=== PATIENT | male | born 1975 | race Hispanic/Latino ===

== ENCOUNTER 2017-10-18 18:47 | Emergency (ER) | payer BC, OTHER ==
[2017-10-18] MEDS ORDERED: IPRATROPIUM/ALBUTEROL SULFATE 3 ML SOLUTION IH ONE (19:16)
== END 2017-10-18 19:44 | disposition home or self-care (01) ==
LOC: EDH 18:47
DX: J18.9 Pneumonia, unspecified organism (principal); E11.9 Type 2 diabetes mellitus without complications; I10 Essential (primary) hypertension
CPT/HCPCS: 71046; 94640

== ENCOUNTER 2017-11-26 07:06 | Emergency (ER) | payer SELFPAY ==
[2017-11-26] MEDS ORDERED: CEPHALEXIN 500 MG CAPSULE ONE (07:38)
[2017-11-26] MEDS ORDERED: ACETAMINOPHEN 325 MG TAB ONE (07:39)
[2017-11-26] MEDS ORDERED: SULFAMETHOX-TMP DS 800/160 TAB ONE (07:39)
== END 2017-11-26 08:05 | disposition home or self-care (01) ==
LOC: EDH 07:06
DX: L03.211 Cellulitis of face (principal); E11.9 Type 2 diabetes mellitus without complications; I10 Essential (primary) hypertension
CPT/HCPCS: 10021

== ENCOUNTER 2017-11-27 02:38 | Emergency (ER) | payer SELFPAY ==
[2017-11-27] MEDS ORDERED: CEFTRIAXONE SODIUM 1 GM ONE (03:06)
[2017-11-27] MEDS ORDERED: LIDOCAINE HCL-MPF 1% 2ML VIAL ONE (03:06)
[2017-11-27] MEDS ORDERED: HYDROCODONE/ACETAMINOPHEN 7.5/325 MG 15 ML UDCUP ONE (03:08)
== END 2017-11-27 03:36 | disposition home or self-care (01) ==
LOC: EDH 02:38
DX: H00.023 Hordeolum internum right eye, unspecified eyelid (principal)
CPT/HCPCS: 96372; 99283; J0696; J3490

== ENCOUNTER 2018-06-02 07:39 | Emergency (ER) | payer OTHER | END 2018-06-02 08:36 | disposition home or self-care (01) | LOC: EDH 07:39 | DX: L73.9 Follicular disorder, unspecified (principal); K13.0 Diseases of lips; E11.9 Type 2 diabetes mellitus without complications; I10 Essential (primary) hypertension ==

== ENCOUNTER 2019-11-09 15:38 | Inpatient (IN) | payer SELFPAY ==
[~2019-11-09] VITALS: Ht 188 cm; Wt 128.4 kg
[2019-11-09] MEDS ORDERED: TETANUS/DIPHTHERIA TOXOID [ADULT] 0.5 ML VIAL IM ONE (16:48)
[2019-11-09 16:53] LABS: BASOPHILS % (AUTO) 0.4 % (0.0-5.0); EOSINOPHILS % (AUTO) 1.3 % (0.0-8.0); HEMATOCRIT 42.9 % (42-54); LYMPHOCYTES % (AUTO) 16.6 % (21.0-51.0); MEAN CORPUSCULAR HEMOGLOBIN 30.2 pg (27.0-33.0); MEAN CORPUSCULAR HGB CONC 35.4 g/dL (32.0-36.0); MEAN CORPUSCULAR VOLUME 85.3 fL (79-99); NEUTROPHILS % (AUTO) 72.8 % (40.0-77.0); PLATELET COUNT (AUTO) 265 K/uL (130-400); RED BLOOD CELL COUNT(AUTO) 5.03 MIL/uL (4.50-6.20); RED CELL DISTRIBUTION WIDTH 11.9 % (11.0-15.5); WHITE BLOOD COUNT (AUTO) 9.9 K/uL (4.8-10.8)
[2019-11-09 17:05] LABS: CREATININE 0.9 mg/dL (0.5-1.5); POTASSIUM 4.2 mmol/L (3.5-5.1)
[2019-11-09 17:10] LABS: ALBUMIN 2.9 g/dL (3.5-5.0); BILIRUBIN,TOTAL 0.7 mg/dL (0.2-1.0); TOTAL PROTEIN, SERUM 7.2 g/dL (6.0-8.3)
[2019-11-09 19:00] LABS: APPEARANCE,URINE Clear (CLEAR); BILIRUBIN,URINE Negative (NEGATIVE); COLOR,URINE Yellow (YELLOW); GLUCOSE, URINE (UA) >=1000 mg/dL (NEGATIVE); KETONES,URINE 15 mg/dL (NEGATIVE); LEUKOCYTE ESTERASE ,URINE Negative (NEGATIVE); NITRATE,URINE Negative (NEGATIVE); OCCULT BLOOD,URINE Negative (NEGATIVE); PH,URINE 5.5 (5.0-8.0); PROTEIN,URINE Negative (NEGATIVE)
[2019-11-09 19:14] LABS: BACTERIA,URINE Rare /HPF (None Seen); RBC,URINE 0-1 /HPF (0-1); SQUAMOUS EPITHELIAL CELL,UR Rare /HPF (0-2); WBC,URINE 0-1 /HPF (0-1)
[2019-11-09] MEDS ORDERED: ACETAMINOPHEN 325 MG TAB PO PRN ×2 (20:30)
[2019-11-09] MEDS ORDERED: LACTULOSE 20 GM/30 ML UDCUP PO PRN (20:30)
[2019-11-09] MEDS ORDERED: ONDANSETRON HCL 4 MG/2 ML VIAL IV PRN (20:30)
[2019-11-09] MEDS: ZOSYN 3.375GM+NS 50ML 50 ML IV SCH (21:00)
[2019-11-09] MEDS: SODIUM CHLORIDE 0.9% 1000ML 1,000 ML IV SCH (21:00)
[2019-11-09] MEDS: FAMOTIDINE 20MG TAB 20 MG TAB PO SCH (21:00)
[2019-11-09] MEDS: INSULIN HUMULIN R 100 UNIT/ML 3ML SQ SCH (21:00)
[2019-11-09] MEDS ORDERED: ZOSYN 3.375GM+NS 50ML 50 ML IV ONE (21:12)
[2019-11-09] MEDS ORDERED: FAMOTIDINE 20MG TAB 20 MG TAB ONE (21:12)
[2019-11-09] MEDS ORDERED: INSULIN HUMULIN R 100 UNIT/ML 3ML ONE (21:13)
[2019-11-09 22:30] VITALS: BP 172/83
--- NOTE | 2019-11-09 22:47 | NUR ---
the normal saline, zosyn, pepcid, and HR insulin not administered at this time, according to ER nurse patient received medication there at 2119.
[2019-11-09] MEDS: HYDRALAZINE HCL 20 MG/ML VIAL IV PRN (22:54)
[2019-11-10] VITALS (7 sets, daily range): BP systolic 133–151; BP diastolic 76–87
[2019-11-10] MEDS: ZOSYN 3.375GM+NS 50ML 50 ML IV SCH ×3 (04:08→20:28)
[2019-11-10 06:01] LABS: BASOPHILS % (AUTO) 0.5 % (0.0-5.0); EOSINOPHILS % (AUTO) 1.5 % (0.0-8.0); HEMATOCRIT 40.8 % (42-54); LYMPHOCYTES % (AUTO) 24.2 % (21.0-51.0); MEAN CORPUSCULAR HGB CONC 34.8 g/dL (32.0-36.0); MEAN CORPUSCULAR VOLUME 86.1 fL (79-99); NEUTROPHILS % (AUTO) 63.5 % (40.0-77.0); PLATELET COUNT (AUTO) 271 K/uL (130-400); RED BLOOD CELL COUNT(AUTO) 4.74 MIL/uL (4.50-6.20); RED CELL DISTRIBUTION WIDTH 11.8 % (11.0-15.5); WHITE BLOOD COUNT (AUTO) 8.2 K/uL (4.8-10.8)
[2019-11-10 06:17] LABS: CREATININE 0.8 mg/dL (0.5-1.5); POTASSIUM 4.5 mmol/L (3.5-5.1)
[2019-11-10] MEDS: SODIUM CHLORIDE 0.9% 1000ML 1,000 ML IV SCH ×2 (06:44→17:04)
[2019-11-10] MEDS: INSULIN HUMULIN R 100 UNIT/ML 3ML SQ SCH ×4 (06:45→20:38)
[2019-11-10] MEDS: FAMOTIDINE 20MG TAB 20 MG TAB PO SCH ×2 (08:16→20:29)
[2019-11-10] MEDS: HYDRALAZINE HCL 20 MG/ML VIAL IV PRN (08:17)
[2019-11-10] MEDS: ENOXAPARIN SODIUM 40 MG/0.4 ML SYRINGE SQ SCH (08:24)
[2019-11-10] MEDS: METOPROLOL TARTRATE 25 MG TAB PO SCH ×2 (10:40→20:28)
[2019-11-10] MEDS ORDERED: METOPROLOL TARTRATE 25 MG TAB ONE (11:01)
--- NOTE | 2019-11-10 20:30 | NUR ---
MEDS SHIFT ASSESSMENT DONE, PLEASE REFER TO CHART. DUE MEDS ADMINISTERED, TOLERATED WELL. CALL LIGHT WITHIN REACH. WILL MONITOR PT. CALL LIGHT WITHIN REACH.
--- NOTE | 2019-11-10 21:10 | NUR ---
[facility] PCP IN AND ASSISTED PT TO THE SHOWER. PT TOLERATED ACTIVITY WELL.
--- NOTE | 2019-11-11 01:55 | NUR ---
ROUNDS PT FAIRLY ASLEEP WITH RESPIRATIONS EVEN AND UNLABORED. NO NOTED DISTRESS. KEPT UNDISTURBED FOR NOW. WILL MONITOR PT.
[2019-11-11] MEDS: SODIUM CHLORIDE 0.9% 1000ML 1,000 ML IV SCH ×3 (02:44→23:00)
[2019-11-11 03:06] VITALS: BP 156/80
[2019-11-11] MEDS: ZOSYN 3.375GM+NS 50ML 50 ML IV SCH ×3 (04:27→23:24)
--- NOTE | 2019-11-11 06:00 | NUR ---
MEDS PT ALREADY AWAKE, NO CONCERNS VERBALIZED. DUE INSULIN DOSE ADMINISTERED, TOLERATED WELL. KEPT COMFORTABLE IN BED. FOR MORE CARE.
[2019-11-11] MEDS: INSULIN HUMULIN R 100 UNIT/ML 3ML SQ SCH ×4 (06:05→23:32)
[2019-11-11 06:14] LABS: BASOPHILS % (AUTO) 0.6 % (0.0-5.0); HEMATOCRIT 40.6 % (42-54); LYMPHOCYTES % (AUTO) 31.8 % (21.0-51.0); MEAN CORPUSCULAR HEMOGLOBIN 30.5 pg (27.0-33.0); MEAN CORPUSCULAR HGB CONC 35.7 g/dL (32.0-36.0); MEAN CORPUSCULAR VOLUME 85.3 fL (79-99); MONOCYTES % (AUTO) 8.2 % (3.0-13.0); NEUTROPHILS % (AUTO) 55.4 % (40.0-77.0); PLATELET COUNT (AUTO) 284 K/uL (130-400); RED BLOOD CELL COUNT(AUTO) 4.76 MIL/uL (4.50-6.20); RED CELL DISTRIBUTION WIDTH 11.8 % (11.0-15.5); WHITE BLOOD COUNT (AUTO) 6.5 K/uL (4.8-10.8)
[2019-11-11 06:28] LABS: ALBUMIN 2.6 g/dL (3.5-5.0); BILIRUBIN,TOTAL 0.6 mg/dL (0.2-1.0); CREATININE 0.8 mg/dL (0.5-1.5); POTASSIUM 4.4 mmol/L (3.5-5.1); TOTAL PROTEIN, SERUM 6.6 g/dL (6.0-8.3)
[2019-11-11] MEDS ORDERED: METF-446 PO (06:49)
[2019-11-11] MEDS ORDERED: LISI10TA7 PO (06:49)
[2019-11-11 08:00] VITALS: BP 143/83
--- NOTE | 2019-11-11 08:00 | NUR ---
AM SHIFT ASSESSMENT. DRESSINGS TO FEET IN PLACE, CLEAN AND DRY. DENIES PAIN.
[2019-11-11] MEDS ORDERED: LIDOCAINE HCL-MPF 2% 5ML VIAL IM SCH (09:00)
[2019-11-11] MEDS: FAMOTIDINE 20MG TAB 20 MG TAB PO SCH ×2 (10:00→23:24)
[2019-11-11] MEDS: METOPROLOL TARTRATE 25 MG TAB PO SCH ×2 (10:00→23:25)
[2019-11-11] MEDS: ENOXAPARIN SODIUM 40 MG/0.4 ML SYRINGE SQ SCH (10:01)
--- NOTE | 2019-11-11 11:28 | NUR ---
DR. FERMIN IN TO SEE PT. BEDSIDE DEBRIDEMENT DONE TO BLISTERED AREA RT. FOOT. CULTURE COLLECTED AND SENT TO LAB. DRY BLISTER ON LT FOOT CLEANED AND LEFT ALONE TO OPEN IR.
[2019-11-11 12:00] VITALS: BP 151/78
[2019-11-11 16:00] VITALS: BP 160/84
--- NOTE | 2019-11-11 18:00 | NUR ---
HAS RESTED WELL TODAY. STATES HAS NO PAIN TO RT. FOOT. DRESSING IN PLACE. WILL NEED TO BE REINFORCED.
[2019-11-11 19:50] VITALS: BP 127/82
[2019-11-12] VITALS: BP 166/94
[2019-11-12] MEDS: SODIUM CHLORIDE 0.9% 1000ML 1,000 ML IV SCH (02:12)
[2019-11-12] MEDS: ZOSYN 3.375GM+NS 50ML 50 ML IV SCH ×2 (03:19→12:20)
[2019-11-12 04:12] LABS: EOSINOPHILS % (AUTO) 2.6 % (0.0-8.0); HEMATOCRIT 42.5 % (42-54); LYMPHOCYTES % (AUTO) 31.1 % (21.0-51.0); MEAN CORPUSCULAR HEMOGLOBIN 30.1 pg (27.0-33.0); MEAN CORPUSCULAR HGB CONC 35.3 g/dL (32.0-36.0); MEAN CORPUSCULAR VOLUME 85.2 fL (79-99); MONOCYTES % (AUTO) 7.3 % (3.0-13.0); NEUTROPHILS % (AUTO) 54.3 % (40.0-77.0); PLATELET COUNT (AUTO) 299 K/uL (130-400); RED BLOOD CELL COUNT(AUTO) 4.99 MIL/uL (4.50-6.20); RED CELL DISTRIBUTION WIDTH 11.6 % (11.0-15.5); WHITE BLOOD COUNT (AUTO) 6.8 K/uL (4.8-10.8)
[2019-11-12 04:49] LABS: ALBUMIN 2.7 g/dL (3.5-5.0); BILIRUBIN,TOTAL 0.4 mg/dL (0.2-1.0); CREATININE 0.7 mg/dL (0.5-1.5); POTASSIUM 3.8 mmol/L (3.5-5.1); TOTAL PROTEIN, SERUM 6.8 g/dL (6.0-8.3)
[2019-11-12 04:57] VITALS: BP 143/81
[2019-11-12] MEDS: INSULIN HUMULIN R 100 UNIT/ML 3ML SQ SCH ×2 (06:24→12:21)
[2019-11-12 08:00] VITALS: BP 163/86
--- NOTE | 2019-11-12 08:00 | NUR ---
AM SHIFT ASSESSMENT, NO /C OF PAIN. DRESSING TO RT. FOOT WELL SECURED, CLEAN AND DRY.
--- NOTE | 2019-11-12 08:00 | NUR ---
AM ROUNDS. AWAKE AND EATING BKFT. STATES NO PAIN TO RT. FOOT.
[2019-11-12] MEDS: FAMOTIDINE 20MG TAB 20 MG TAB PO SCH (08:20)
[2019-11-12] MEDS: METOPROLOL TARTRATE 25 MG TAB PO SCH (08:20)
[2019-11-12] MEDS: ENOXAPARIN SODIUM 40 MG/0.4 ML SYRINGE SQ SCH (08:21)
[2019-11-12 11:00] VITALS: BP 146/77
[2019-11-12] MEDS ORDERED: METF500S7 PO (13:05)
[2019-11-12] MEDS ORDERED: CLIN300C9 PO (13:05)
[2019-11-12] MEDS ORDERED: LEVO500T89 PO (13:05)
--- NOTE | 2019-11-12 14:34 | NUR ---
DCP CM met with pt discussed dc plans. Pt is independent prior to admission, lives at home with spouse and 2 minor children. Denies any equipment/services. Feels safe to go back home, still drives, spouse able to assist with transporation and needs. Pt verbalized he was just laid off from work recently, no insurance at this time, but goes to [facility] whenever he needs to see MD. Given [facility] packet, [facility] assisting. DC plan to home once stable. CM to cont to follow up. Addendum: 11/12/19 at 1436 by GILBERT MELÉNDEZ LVN CM Amended: Links added.
--- NOTE | 2019-11-12 15:15 | NUR ---
DISCHARGED NOW USING TEACH BACK, RX GIVEN AND DRESSING TO RT. FOOT CHANGED PRIOR TO DC,DEBRIDED AREA LOOKS CLEN, NO BAD ODOR AND SWELLING IS DOWN.SPOUSE WILL ASST. WITH DRESSING CHANGES AT HOME AND PT. WILL FOLLOW UP WITH DR. FERMIN SCHEDULED.TELE-MONITOR AND SALINE LOCK REMOVED. NO C/O OR ANY OTHER CONCERNS VOICED AT TIME OF DC
== END 2019-11-12 15:45 | disposition home or self-care (01) | DRG 935 ==
LOC: EDH 15:38 → EDHIP 20:24 → 3AH 21:00
PROVIDERS: ADMIT Internal Medicine; ATTEND Internal Medicine
PROC: 3E0234Z Introduction of Serum, Toxoid and Vaccine into Muscle, Percutaneous Approach (ICD-10-PCS; 2019-11-09)
PROC: 0JBQ0ZZ Excision of Right Foot Subcutaneous Tissue and Fascia, Open Approach (ICD-10-PCS; principal; 2019-11-11)
DX: T25.221A Burn of second degree of right foot, initial encounter (principal); L03.115 Cellulitis of right lower limb; L03.116 Cellulitis of left lower limb; E11.52 Type 2 diabetes mellitus with diabetic peripheral angiopathy with gangrene; T25.222A Burn of second degree of left foot, initial encounter; I10 Essential (primary) hypertension; E11.42 Type 2 diabetes mellitus with diabetic polyneuropathy; E11.621 Type 2 diabetes mellitus with foot ulcer; L97.519 Non-pressure chronic ulcer of other part of right foot with unspecified severity; L97.529 Non-pressure chronic ulcer of other part of left foot with unspecified severity; X19.XXXA Contact with other heat and hot substances, initial encounter; Y93.89 Activity, other specified; Y92.89 Other specified places as the place of occurrence of the external cause; Y99.8 Other external cause status; Z91.14 Patient's other noncompliance with medication regimen; Z23 Encounter for immunization
CPT/HCPCS: 36415; 73718; 80048; 80053; 81001; 82948; 83605; 85025; 85651; 87040; 87070; 87076; 87077; 87186; 90714; G0378; J0360; J1650; J1815; J2543; J3490; J7030

== ENCOUNTER 2022-07-27 13:55 | Emergency (ER) | payer OTHER ==
[~2022-07-27] VITALS: Ht 188 cm; Wt 120.4 kg
[~2022-07-27 13:55] MED LIST: CLIN-141 PO; LEVO-70 PO; LISI10TA24 PO; METF500S9 PO
[2022-07-27] MEDS ORDERED: ONDANSETRON 4MG INJ ONE (14:27)
[2022-07-27 14:30] LABS: BASOPHILS % (AUTO) 0.3 % (0.0-5.0); EOSINOPHILS % (AUTO) 0.3 % (0.0-8.0); HEMATOCRIT 46.4 % (42-54); LYMPHOCYTES % (AUTO) 16.1 % (21.0-51.0); MEAN CORPUSCULAR HGB CONC 35.6 g/dL (32.0-36.0); MEAN CORPUSCULAR VOLUME 84.4 fL (79-99); MONOCYTES % (AUTO) 4.9 % (3.0-13.0); NEUTROPHILS % (AUTO) 77.6 % (40.0-77.0); PLATELET COUNT (AUTO) 284 K/uL (130-400); WHITE BLOOD COUNT (AUTO) 7.8 K/uL (4.8-10.8)
[2022-07-27] MEDS ORDERED: KETOROLAC 30MG VIAL (30MG/ML) IVP ONE (14:30)
[2022-07-27] MEDS ORDERED: ONDANSETRON 4MG INJ IVP ONE ×2 (14:30→16:30)
[2022-07-27] MEDS ORDERED: 0.9%NACL 1000ML 2,000 ML IV ONE (14:30)
[2022-07-27 14:42] LABS: CREATININE 0.8 mg/dL (0.5-1.5); POTASSIUM 4.1 mmol/L (3.5-5.1)
[2022-07-27 14:47] LABS: ALBUMIN 3.9 g/dL (3.5-5.0); TOTAL PROTEIN, SERUM 7.8 g/dL (6.0-8.3)
[2022-07-27 16:00] LABS: APPEARANCE,URINE CLEAR (CLEAR); BILIRUBIN,URINE NEGATIVE (NEGATIVE); COLOR,URINE LIGHT-YELLOW (YELLOW); GLUCOSE, URINE (UA) >=1000 mg/dL (NEGATIVE); KETONES,URINE 100 mg/dL (NEGATIVE); LEUKOCYTE ESTERASE ,URINE NEGATIVE Leu/uL (NEGATIVE); NITRATE,URINE NEGATIVE (NEGATIVE); PROTEIN,URINE 100 mg/dL (NEGATIVE); UROBILINOGEN,URINE 0.2 mg/dL (0.2-1.0)
[2022-07-27 16:01] LABS: MUCUS,URINE RARE LPF (None Seen); SQUAMOUS EPITHELIAL CELL,UR RARE /HPF (0-2)
[2022-07-27] MEDS ORDERED: LACT20PA6 PO (16:29)
[2022-07-27] MEDS ORDERED: MORPHINE 4 MG SYG IVP ONE (16:30)
[2022-07-27 16:35] VITALS: BP 144/82
== END 2022-07-27 16:49 | disposition home or self-care (01) ==
LOC: EDH 13:55
DX: K59.00 Constipation, unspecified (principal); R10.9 Unspecified abdominal pain; E11.9 Type 2 diabetes mellitus without complications; I10 Essential (primary) hypertension; Z79.899 Other long term (current) drug therapy
CPT/HCPCS: 99285; 74176; 96374; 96361; 96375; 80053; 85025; 81001; 36415; J7030; J2405; J1885

== ENCOUNTER 2022-07-30 07:54 | Emergency (ER) | payer OTHER ==
[~2022-07-30] VITALS: Ht 188 cm; Wt 122.5 kg
[~2022-07-30 07:54] MED LIST changes: +LACT20PA6 PO
[2022-07-30 07:56] VITALS: BP 101/60
[2022-07-30] MEDS ORDERED: KETOROLAC 30MG VIAL (30MG/ML) IVP ONE (08:30)
[2022-07-30] MEDS ORDERED: CYCLOBENZAPRINE HCL 10 MG TABLET PO ONE (08:30)
[2022-07-30] MEDS ORDERED: CYCL10TA16 PO (10:20)
[2022-07-30] MEDS ORDERED: IBUP-1493 PO (10:20)
== END 2022-07-30 10:32 | disposition home or self-care (01) ==
LOC: EDH 07:54
DX: M54.50 Low back pain, unspecified (principal); Z79.84 Long term (current) use of oral hypoglycemic drugs; Z79.899 Other long term (current) drug therapy
CPT/HCPCS: 99285; 96374; 72131; J1885

== ENCOUNTER 2024-04-30 12:02 | Emergency (ER) | payer SELFPAY ==
[~2024-04-30] VITALS: Ht 182.9 cm; Wt 115.7 kg
[~2024-04-30 12:02] MED LIST changes: +CYCL10TA16 PO; +IBUP-1493 PO
[2024-04-30 12:55] LABS: BASOPHILS # (AUTO) 0.05 K/uL (0.00-0.20); BASOPHILS % (AUTO) 0.7 % (0.0-5.0); EOSINOPHILS # (AUTO) 0.24 K/uL (0.00-0.70); EOSINOPHILS % (AUTO) 3.2 % (0.0-8.0); HEMATOCRIT 42.9 % (42-54); IMMATURE GRANULOCYTE ABSOLUTE 0.11 K/uL (0-1); LYMPHOCYTES # (AUTO) 1.8 K/uL (1.0-4.8); MEAN CORPUSCULAR HEMOGLOBIN 30.2 pg (27.0-33.0); MEAN CORPUSCULAR HGB CONC 35.2 g/dL (32.0-36.0); MEAN CORPUSCULAR VOLUME 85.8 fL (79-99); MONOCYTES # (AUTO) 0.7 K/uL (0.1-1.0); MONOCYTES % (AUTO) 9.2 % (3.0-13.0); NEUTROPHILS # (AUTO) 4.6 K/uL (1.8-7.7); NEUTROPHILS % (AUTO) 61.4 % (40.0-77.0); PLATELET COUNT (AUTO) 288 K/uL (130-400); RED CELL DISTRIBUTION WIDTH 12.1 % (11.0-15.5); WHITE BLOOD COUNT (AUTO) 7.5 K/uL (4.8-10.8)
[2024-04-30 12:56] LABS: CREATININE 0.8 mg/dL (0.5-1.3); POTASSIUM 4.4 mmol/L (3.5-5.1)
[2024-04-30] MEDS ORDERED: SULF1TAB42 PO (14:40)
[2024-04-30 14:53] VITALS: BP 118/74; PULSE 78; RESP 18; TEMP 98.6; O2SAT 98
== END 2024-04-30 15:05 | disposition home or self-care (01) ==
LOC: EDH 12:02
DX: S92.021A Displaced fracture of anterior process of right calcaneus, initial encounter for closed fracture (principal); E11.9 Type 2 diabetes mellitus without complications; I10 Essential (primary) hypertension; Z79.84 Long term (current) use of oral hypoglycemic drugs; Z79.899 Other long term (current) drug therapy; X58.XXXA Exposure to other specified factors, initial encounter; Y93.89 Activity, other specified; Y92.89 Other specified places as the place of occurrence of the external cause; Y99.8 Other external cause status
CPT/HCPCS: 29515; 36415; 73620; 80048; 83605; 84145; 85025; 93971